=== PATIENT | male | born 1960 | race Caucasian/White ===

== ENCOUNTER 2017-08-27 11:30 | Observation (INO) | payer MEDICARE, MEDICAID ==
[~2017-08-27] VITALS: Ht 182.9 cm; Wt 135.4 kg
[~2017-08-27 11:30] MED LIST: LORTAB 5/3255 MG PO
[2017-08-27] MEDS ORDERED: FLONASE AL50 MCG/ACT NAB (12:16)
[2017-08-27 12:21] LABS: HEMATOCRIT 44.8 % (39.0-50.0); IMMATURE GRANULOCYTES 0.2 % (0.0-1.0); MEAN CELL VOLUME 94.3 fL CALC (80.0-100.0); MEAN CORPUSCULAR HGB 32.2 pG CALC (26.0-32.0); MEAN CORPUSCULAR HGB CONC 34.2 g/L CALC (32.0-36.0); NEUT# 3.34 thou/uL (1.82-7.42); RED BLOOD COUNT 4.75 mill/uL (4.70-6.10)
[2017-08-27 12:24] LABS: HEMOGLOBIN 15.3 g/dl (14.0-18.0)
[2017-08-27 12:42] LABS: ALBUMIN 4.5 g/dL (3.2-5.0); ALKALINE PHOSPHATASE 90 u/l (38-126); BILIRUBIN, TOTAL 1.5 mg/dL (0.0-1.4); BUN 22 mg/dL (9-20); BUN/CREATININE RATIO 20 (12-20 (CALC)); CHLORIDE 106 mmol/l (95-108); CREATININE 1.1 mg/dL (0.7-1.3); GFR > 60 ML/MIN (>=60 (CALC)); GFR FOR AFR.AMER. > 60 ML/MIN (>=60 (CALC)); POTASSIUM 4.7 mmol/l (3.5-5.1); SGOT/AST 43 u/l (17-59); SGPT/ALT 35 u/l (21-72); SODIUM 142 mmol/l (137-146); TOTAL PROTEIN 7.7 g/dL (6.3-8.2)
[2017-08-27 12:44] LABS: ANION GAP 22 (6-22 (CALC)); CARBON DIOXIDE 19 mmol/l (22-30)
[2017-08-27 13:43] LABS: MYOGLOBIN 40 ng/mL (0 - 121)
[2017-08-27 16:41] VITALS: BP 100/59
[2017-08-27 19:00] VITALS: BP 117/50
[2017-08-28 00:12] VITALS: BP 115/58
== END 2017-08-28 02:44 | disposition left against medical advice (07) ==
LOC: ED 11:30 → ED-I 12:21 → ED 15:18 → MS2 15:19
PROVIDERS: Emergency Medicine; ADMIT Internal Medicine; ATTEND Internal Medicine
DX: T63.441A Toxic effect of venom of bees, accidental (unintentional), initial encounter (principal); T78.2XXA Anaphylactic shock, unspecified, initial encounter